=== PATIENT | male | born 1965 | race African-American/Black ===

== ENCOUNTER 2016-05-31 20:37 | Emergency (ER) | payer SELFPAY ==
[~2016-05-31] VITALS: Ht 177.8 cm; Wt 84.0 kg
[2016-05-31 23:39] VITALS: BP 105/77
== END 2016-06-01 00:01 | disposition home or self-care (01) ==
LOC: ER 21:54
DX: T51.0X1A Toxic effect of ethanol, accidental (unintentional), initial encounter (principal); S09.8XXA Other specified injuries of head, initial encounter; F43.10 Post-traumatic stress disorder, unspecified; I10 Essential (primary) hypertension; Z85.841 Personal history of malignant neoplasm of brain; Y08.89XA Assault by other specified means, initial encounter; Y93.89 Activity, other specified; Y92.89 Other specified places as the place of occurrence of the external cause; Y99.8 Other external cause status
CPT/HCPCS: 36415; 70450; 99285; G0482; Z7610